=== PATIENT | male | born 1985 | race Caucasian/White ===

== ENCOUNTER 2017-05-28 12:44 | Emergency (ER) | payer BC ==
[2017-05-28] MEDS ORDERED: Acetaminophen TAB* 325 MG PO ONE (14:14)
[2017-05-28] MEDS ORDERED: Ketorolac INJ* 60 MG/2 ML VIAL IM ONE (15:10)
--- NOTE | 2017-05-28 15:16 | UC ---
HPI Febrile Illness - HPI Summary HPI Summary: 31 male presents with complaints of body aches, fever/chills, lower back pain, diarrhea and generalized fatigue/malaise that has been on going since Saturday night 05/26/17. 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 Believes he may have lyme disease. Denies any bullseye rash. States he was also at the [employer] festival, sharing drinks and eating food which may have caused his symptoms. Patient also admits to a dazy headache intermittently. Has been eating and drinking plenty of fluids. Appears to be very anxious. 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 Taking Zoloft. Has been taking 600mg ibuprofen with last dose yesterday without relief. Given Tylenol at for body aches at 2:00pm. Denies rash, numbness, tingling, weakness and neck stiffness. - History of Current Complaint Hx Obtained From: Patient Onset/Duration: Started Days Ago - 2-3, Still Present Timing: Constant Temperature: 100.3 F Initial Severity: Moderate Current Severity: Moderate Pain Intensity: 10 Pain Scale Used: 0-10 Numeric Aggravating Factors: Nothing Alleviating Factors: Nothing Associated Signs and Symptoms: Arthralgia, Diarrhea, Headache, Nausea <Paola Hayes - Last Filed: 05/28/17 16:16> <Jennifer Mcgraw - Last Filed: 05/29/17 06:53> - History of Current Complaint Chief Complaint: UCGeneralIllness Time Seen by Provider: 05/28/17 14:50 - Allergy/Home Medications Allergies/Adverse Reactions: Allergies Allergy/AdvReac Type Severity Reaction Status Date / Time No Known Allergies Allergy Verified 05/28/17 13:06 Home Medications: Home Medications Sertraline* [Zoloft*] 50 mg PO DAILY 05/28/17 [History Confirmed 05/28/17] PMH/Surg Hx/FS Hx/Imm Hx Endocrine/Hematology History: Denies: Hx Diabetes, Hx Thyroid Disease Cardiovascular History: Denies: Hx Hypertension Respiratory History: Denies: Hx Asthma, Hx Chronic Obstructive Pulmonary Disease (COPD) GI History: Denies: Hx Ulcer - Surgical History Surgery Procedure, Year, and Place: partial splenectomy, both feet Infectious Disease History: No Infectious Disease History: Denies: Hx Clostridium Difficile, Hx Hepatitis, Hx Human Immunodeficiency Virus (HIV), Hx Shingles, Hx Tuberculosis, Hx Known/Suspected VRE, Hx Known/ Suspected VRSA, History Other Infectious Disease, Traveled Outside the [place] in Last 30 Days - Family History Known Family History: Positive: None - Social History Alcohol Use: Weekly Substance Use Type: Reports: None Smoking Status (MU): Former Smoker <Paola Hayes - Last Filed: 05/28/17 16:16> Review of Systems Constitutional: Fever, Chills, Fatigue Skin: Negative Eyes: Negative ENT: Negative Respiratory: Negative Cardiovascular: Negative Gastrointestinal: Diarrhea, Nausea Genitourinary: Negative Motor: Negative Neurovascular: Negative Musculoskeletal: Arthralgia, Myalgia Neurological: Headache All Other Systems Reviewed And Are Negative: Yes <Brandyn Hayesyssa - Last Filed: 05/28/17 16:16> Physical Exam Triage Information Reviewed: Yes Appearance: Well-Appearing, No Pain Distress, Well-Nourished Vital Signs: Initial Vital Signs Temp 98.4 F 05/28/17 12:59 Pulse 101 05/28/17 12:59 Resp 18 05/28/17 12:59 BP 115/76 05/28/17 12:59 Pulse Ox 100 05/28/17 12:59 tachycardia, temp 100.3 with acetaminophen 2 hours ago Vital Signs Reviewed: Yes Eyes: Positive: Conjunctiva Clear ENT: Positive: Hearing grossly normal Neck: Positive: Supple, Nontender, No Lymphadenopathy Respiratory: Positive: Chest non-tender, Lungs clear, Normal breath sounds, No respiratory distress, No accessory muscle use Cardiovascular: Positive: RRR, No Murmur, Pulses Normal, Brisk Capillary Refill Abdomen Description: Positive: Nontender - "uncomfortable", No Organomegaly, Soft. Negative: Bruit, CVA Tenderness (R), CVA Tenderness (L), Distended, Guarding, McBurney's Point Tenderness, Peritoneal Signs, Pulsatile Mass Bowel Sounds: Positive: Present Musculoskeletal: Positive: Strength Intact, ROM Intact - pain with movement of knees, back, No Edema Neurological Exam: Normal - neuro exam Neurological: Positive: Alert, Muscle Tone Normal - sensation intact Psychological: Positive: Age Appropriate Behavior Skin Exam: Normal - without rash, erythema, no erythema migrans. normal skin exam. <Paola Hayes - Last Filed: 05/28/17 16:16> Vital Signs: Initial Vital Signs Temp 98.4 F 05/28/17 12:59 Pulse 101 05/28/17 12:59 Resp 18 05/28/17 12:59 BP 115/76 05/28/17 12:59 Pulse Ox 100 05/28/17 12:59 <Jennifer Mcgraw - Last Filed: 05/29/17 06:53> Course/Dx - Course Course Of Treatment: given pain management, tylenol at 2pm without relief. given toradol at 3:30pm with some relief. CBC CMP and lyme titer drawn, flu obtained and negative. Awaiting results from blood work. Will treat with pain managment and doxycyline for the next 7 days until test results obtained. Told to make an appointment with PCP for follow up and if symptoms persist worsen. Differential diagnoses: viral syndrome, gastroenteritis, influenza, lyme disease. Patient was educated on all and current treatment plan. Will continue doxy if positive titer. Very vague/diffuse symptoms/complaints. Aware of worsening signs and symtpoms and go straight to ER if persist, worsen or new symptosm develop as I am limited with lab studies at . Did advise going to ER for quicker results and further work up is recommended. - Febrile Illness Differential Diagnoses: GI Disease, Other: - lyme disease, tick bite, gastroenteritis, influenza, viral syndrome - Diagnoses Clinic Provider Diagnoses: arthralgias, low grade fever, possible lyme disease <Paola Hayes - Last Filed: 05/28/17 16:16> Discharge <Paola Hayes - Last Filed: 05/28/17 16:16> <Jennifer Mcgraw - Last Filed: 05/29/17 06:53> - Discharge Plan Condition: Stable Disposition: HOME Prescriptions: DOXYcycline CAP(*) [DOXYcycline 100MG CAP(*)] 100 mg PO BID #14 cap HYDROcodone/ACETAMIN 5-325 MG* [[place] 5-325 TAB*] 1 tab PO Q6H PRN #3 tab MDD 3 PRN Reason: Pain Patient Education Materials: Lyme Disease (ED), Viral Syndrome (ED), Doxycycline (By mouth) Referrals: No Primary Care Phys,NOPCP [Primary Care Provider] - [facility] [place] [facility]IAN REFERRAL [Outside] Additional Instructions: Drink plenty of fluids and get plenty of rest. Take prescribed doxy as directed for the next 7 days and be sure to protect yourself from the sun. If symptoms worsen, persist or new symptoms develop please go straight to ER. Follow up with PCP. You will hear about test results as received. Attestation Statement User Type: Provider - I was available for consult. This patient was seen by the [facility]. The patient was not presented to, seen by, or examined by me. -[place] <Jennifer Mcgraw - Last Filed: 05/29/17 06:53> Addendum entered and electronically signed by Paola Hayes PA 05/28/17 16: 04: ED Addendum Addendum: At discharge vitals patient's temperature had increased to 105F. Was given tylenol at 2pm and toradol ~ 10minutes before discharge vitals. Was encouraged and highly recommended to go to the ER and was aware of the risks of leaving AMA. Patient stated he was not going to the ER via ambulance and he would have someone drive him. Therefore no fluids or IV was initiated as patient left AMA to be brought by private car. Addendum entered and electronically signed by Paola Hayes PA 05/28/17 16: 16: ED Addendum Addendum: spoke with Lakesha Nloasco PA-C at [facility] [place] at 4:15pm about patient
[2017-05-28 16:09] VITALS: BP 128/72
== END 2017-05-28 16:19 | disposition home or self-care (01) ==
LOC: UCEAST 12:44
DX: M25.50 Pain in unspecified joint (principal); R50.9 Fever, unspecified; Z87.891 Personal history of nicotine dependence
CPT/HCPCS: 87502; 99202; A9270-GY; G0463; J1885

== ENCOUNTER 2017-05-28 16:38 | Emergency (ER) | payer BC ==
[2017-05-28] MEDS ORDERED: NS 0.9% 1000 ML* 2,000 ML IV ONE (17:59)
[2017-05-28] MEDS ORDERED: cefTRIAXone(*) 1 GM in NS 0.9% 50 ML* 50 ML IVPB ONE (18:14)
[2017-05-28 18:56] LABS: Hematocrit 43 % (42-52); Hemoglobin 14.7 g/dl (14.0-18.0); Mean Corpuscular HGB Conc 34 g/dl (31-36); Mean Corpuscular Hemoglobin 31 pg (27-31); Mean Corpuscular Volume 92 fL (80-94); Mean Platelet Volume 8 um3 (7.4-10.4); Red Blood Count 4.72 10^6/ul (4.0-5.4); Red Cell Distribution Width 13 % (10.5-15); White Blood Count 11.5 10^3/ul (3.5-10.8)
[2017-05-28 19:12] LABS: Albumin 3.9 g/dL (3.2-5.2); BUN/Creatinine Ratio 10.7 (8-20); C Reactive Protein 274.59 mg/L (< 5.00); Calcium 9.1 mg/dL (8.6-10.3); EGFR African American 88.5 (>60); EGFR Non-African American 68.8 (>60); Globulin 3.3 g/dL (2-4); Potassium 2.9 mmol/L (3.5-5.0); Total Bilirubin 0.5 mg/dL (0.2-1.0); Total Protein 7.2 g/dL (6.4-8.9)
[2017-05-28] MEDS ORDERED: Acetaminophen TAB* 325 MG PO ONE (19:50)
[2017-05-28] MEDS ORDERED: Ibuprofen TAB* 600 MG PO ONE ×2 (21:43→23:29)
[2017-05-28 21:58] LABS: Urine Bacteria Absent (Absent); Urine Bilirubin Negative (Negative); Urine Glucose Negative (Negative); Urine Nitrite Negative (Negative)
[2017-05-28 23:17] VITALS: BP 112/82
[2017-05-28] MEDS ORDERED: HYDROcodone/ACETAMIN 5-325 MG* 1 TAB PO ONE (23:28)
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
[2017-05-30 22:39] LABS: Lyme Disease IgG Ab WB Negative (Negative)
== END 2017-05-28 23:53 | disposition home or self-care (01) ==
LOC: ED 16:38
DX: R50.9 Fever, unspecified (principal); R19.7 Diarrhea, unspecified; Z87.891 Personal history of nicotine dependence
CPT/HCPCS: 36415; 80053; 81003; 81015; 82270; 83605; 83630; 85025; 86140; 86617; 86618; 87040; 87045; 87046; 87077; 87328; 87329; 87493; 87899; 96360; 99285; A9270-GY; J0696

== ENCOUNTER 2018-02-09 13:03 | Emergency (ER) | payer BC ==
[2018-02-09 13:31] VITALS: BP 113/57
--- NOTE | 2018-02-09 13:47 | UC ---
Respiratory Complaint HPI - HPI Summary HPI Summary: 32 y/o male presents to the urgent care c/o sinus congestion w/ sinus pain , BELLO and green PND for the past 3 months. Pt reports he went to an urgent care about 1 months ago and Rx Doxycycline PO . He finished the full course of ABx and symptoms improved only for a few day, but now returned. For the past week symptoms have worsen. BELLO is 4/10 w/ B/L ear pressure. He took Sudafed which helped for only a few hours. He feels also fatigue at times. He works outdoor and he has Hx of seasonal allergies. - History of Current Complaint Chief Complaint: UCRespiratory Stated Complaint: CONGESTED Time Seen by Provider: 02/09/18 13:44 Hx Obtained From: Patient Onset/Duration: Gradual Onset, Lasting Weeks - 3 months, Still Present, Worse Since - last week Timing: Constant Severity Initially: Mild Severity Currently: Moderate Pain Intensity: 4 - sinus pain Pain Scale Used: 0-10 Numeric Character: Cough: Productive, Sputum Description: - yellowish Aggravating Factors: Recumbent Position Associated Signs And Symptoms: Positive: Nasal Congestion, Sinus Discomfort. Negative: Fever, Chills, Wheezing, URI Related History: Seasonal Allergies - Risk Factors Pulmonary Embolism Risk Factors: Negative Cardiac Risk Factors: Negative Pseudomonas Risk Factors: Negative Tuberculosis Risk Factors: Negative - Allergies/Home Medications Allergies/Adverse Reactions: Allergies Allergy/AdvReac Type Severity Reaction Status Date / Time No Known Allergies Allergy Verified 05/28/17 13:06 Home Medications: Home Medications Vortioxetine Hydrobromide [Trintellix] 10 mg PO 02/09/18 [History] PMH/Surg Hx/FS Hx/Imm Hx Previously Healthy: Yes Respiratory History: Asthma - as a child Other Respiratory History: seasonal allergies - Surgical History Surgical History: Yes Surgery Procedure, Year, and Place: partial splenectomy, both feet - Family History Known Family History: Positive: None - Pt denies FMHX Negative: Cardiac Disease, Hypertension, Diabetes - Social History Occupation: Employed Full-time Lives: With Family Alcohol Use: Occasionally Substance Use Type: None Smoking Status (MU): Former Smoker Review of Systems Constitutional: Negative Skin: Negative Eyes: Negative ENT: Ear Ache - B/L ear pressure, Nasal Discharge, Sinus Congestion, Sinus Pain/ Tenderness Respiratory: Cough - productive Cardiovascular: Negative Gastrointestinal: Negative Genitourinary: Negative Motor: Negative Neurovascular: Negative Musculoskeletal: Negative Neurological: Headache Psychological: Negative Is Patient Immunocompromised?: No All Other Systems Reviewed And Are Negative: Yes Physical Exam - Summary Physical Exam Summary: Vitals: reviewed General: Well developed, well-nourished male patient with NAD. Head and face: Normocephalic and atraumatic, Positive tenderness over the frontal and maxillary sinuses.. Eyes: PERRLA, EOMI x 2. Normal conjunctiva. No eye discharge. ENT: Ears and TM with normal limits. Nose: with yellowish discharge and erythematous mucosa. Pharynx with erythema, no exudate. +PND yellowish Neck: Supple, no JVD, no carotid bruits and no lymphadenopathy. Lungs: clear, no rales, no rhonchi, no wheezes. CVS: RRR, S1 and S2 present no murmurs or gallops appreciated. Abdomen: soft nontender with positive bowel sounds. Extremities: no edema noted. Neuro: WNL. Skin: warm and dry Triage Information Reviewed: Yes Vital Signs: Initial Vital Signs Temp 98.6 F 02/09/18 13:28 Pulse 70 02/09/18 13:28 Resp 18 02/09/18 13:28 BP 113/57 02/09/18 13:28 Pulse Ox 99 02/09/18 13:28 UC Diagnostic Evaluation - Laboratory O2 Sat by Pulse Oximetry: 99 Respiratory Course/Dx - Course Course Of Treatment: 32 y/o male presents to the urgent care c/o sinus congestion w/ sinus pain , BELLO and green PND for the past 3 months. Pt reports he went to an urgent care about 1 months ago and Rx Doxycycline PO . He finished the full course of ABx and symptoms improved only for a few day, but now returned. For the past week symptoms have worsen. BELLO is 4/10 w/ B/L ear pressure. He took Sudafed which helped for only a few hours. He feels also fatigue at times. 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 Pt w/ acute bacterial sinusitis on examination. Pt with 3 months of symptoms getting worse. Pt Rx Augmentin PO and flonase nasal spray. Discharge instructions explained to Pt. Advised to f/u w/ his PCP of ENT Dr Caro for further evaluation and Tx of his recurrent sinusitis. Pt understood and agreed with plan of care. - Differential Dx/Diagnosis Differential Diagnosis/HQI/PQRI: Bronchitis, Influenza, Sinusitis, Other - URI Provider Diagnoses: 1- Acute bacterial sinusitis Discharge - Sign-Out/Discharge Documenting (check all that apply): Discharge - Discharge Plan Condition: Stable Disposition: HOME Prescriptions: Amoxicillin/Clavulanate TAB* [Augmentin TAB 875*] 875 mg PO BID #20 tab Fluticasone NASAL SPRAY 50MCG* [Flonase NASAL SPRAY 50MCG*] 2 spray BOTH NARES DAILY #1 btl Patient Education Materials: Sinusitis (ED) Referrals: [facility] [place] [facility] REFERRAL [Outside] - 1 Week London Caro MD [Medical Doctor] - If Needed Additional Instructions: 1- Please increase fluid intake and rest. take full course of antibiotic to avoid resistance 2-Use Flonase as directed to help drain fluid. Also buy saline drops to clear sinuses. Use a humidifier or vaporizer at night time. 3-Continue taking Sudafed PO to alleviates sinus congestion 4- Please f/u w/ your PCP or ENT DR Caro if symptoms do not improvement for further management and treatment - Billing Disposition and Condition Condition: STABLE Disposition: HOME
== END 2018-02-09 14:29 | disposition home or self-care (01) ==
LOC: UCEAST 13:03
DX: J01.90 Acute sinusitis, unspecified (principal); Z87.891 Personal history of nicotine dependence
CPT/HCPCS: 99212; G0463

== ENCOUNTER 2018-05-20 15:21 | Emergency (ER) | payer BC ==
[2018-05-20 16:54] VITALS: BP 129/74
--- NOTE | 2018-05-20 17:23 | UC ---
Skin Complaint HPI - HPI Summary HPI Summary: 32 y/o male presents to the urgent care c/o rash around navel for the past 9 days. Pt reports he had 2 tick bites inside his navel about 2 weeks ago. He removed engorged ticks. He went to [facility] urgent care about 1 week ago and Dx w / cellulitis and Rx Bactrim PO. He has been taking ABx w/o any improvement and rash is increasing in size. Pt feels fatigue, but denies pain, fever, joint pain , BELLO, chest pain, abdominal pain, N/V/D. Pt is always working outdoors. - History of Current Complaint Chief Complaint: [facility] Time Seen by Provider: 05/20/18 17:15 Stated Complaint: TICK BITES,RASH Hx Obtained From: Patient Onset/Duration: Gradual Onset, Lasting Days - 9 days, Still Present, Worse Since - yesterday Skin Exposure Onset/Duration: Days Ago - 9 Timing: Constant Onset Severity: Mild Current Severity: Moderate Pain Intensity: 0 Pain Scale Used: 0-10 Numeric Location: Discrete - aroun navel s/p tick bite Character: Redness Aggravating Factor(s): Nothing Alleviating Factor(s): Nothing Associated Signs & Symptoms: Positive: Weakness, Rash. Negative: Fever, Chills , Drainage, Tenderness Related History: Possible Reaction to: Insect - Allergy/Home Medications Allergies/Adverse Reactions: Allergies Allergy/AdvReac Type Severity Reaction Status Date / Time No Known Allergies Allergy Verified 05/20/18 16:54 Home Medications: Home Medications Vortioxetine Hydrobromide [Trintellix] 10 mg PO DAILY WITH MEAL 05/20/18 [ History Confirmed 05/20/18] Review of Systems Constitutional: Fatigue Skin: Rash - around navel Eyes: Negative ENT: Negative Respiratory: Negative Cardiovascular: Negative Gastrointestinal: Negative Genitourinary: Negative Motor: Negative Neurovascular: Negative Musculoskeletal: Negative Neurological: Negative Psychological: Negative Is Patient Immunocompromised?: No All Other Systems Reviewed And Are Negative: Yes PMH/Surg Hx/FS Hx/Imm Hx Previously Healthy: Yes Respiratory History: Asthma - Surgical History Surgical History: Yes Surgery Procedure, Year, and Place: partial splenectomy. left foot f - Family History Known Family History: Positive: Cardiac Disease Negative: Hypertension, Diabetes - Social History Occupation: Employed Full-time Lives: With Family Alcohol Use: Weekly Substance Use Type: None Smoking Status (MU): Former Smoker When Did the Patient Quit Smoking/Using Tobacco: one year Physical Exam - Summary Physical Exam Summary: Vital Signs Reviewed: Yes General: well developed, well nourished male sitting in the examining table w/o any apparent distress. Eyes: Positive: Conjunctiva Clear - PERRLA, EOMI ENT: Positive: Normal ENT inspection, Hearing grossly normal, Pharynx normal, TMs normal Neck: Positive: Supple, Nontender, No Lymphadenopathy Respiratory: Positive: Chest nontender, Lungs clear, Normal breath sounds Cardiovascular: Positive: RRR, No Murmur, Pulses Normal Abdomen Description: Positive: Nontender, No Organomegaly, Soft. Negative: CVA Tenderness (R), CVA Tenderness (L) Bowel Sounds: Positive: Present Musculoskeletal: Positive: Strength Intact, ROM Intact, No Edema Neurological Exam: Normal Psychological Exam: Normal Skin: Positive: rashes.positive erythematous patch w/ a central clearance and classical bull's eye lesion, about 5cmx 6.0cm in size around umbilicus. non tender to palpation. no swelling or drainage observed. Triage Information Reviewed: Yes Vital Signs: Initial Vital Signs Temp 98.3 F 05/20/18 16:49 Pulse 65 05/20/18 16:49 Resp 18 05/20/18 16:49 BP 129/74 05/20/18 16:49 Pulse Ox 100 05/20/18 16:49 Course/Dx - Course Course Of Treatment: 32 y/o male presents to the urgent care c/o rash around navel for the past 9 days. Pt reports he had 2 tick bites inside his navel about 2 weeks ago. He removed engorged ticks. He went to [facility] urgent care about 1 week ago and Dx w/ cellulitis and Rx Bactrim PO. He has been taking ABx w/o any improvement and rash is increasing in size. Pt feels fatigue, but denies pain, fever, joint pain, BELLO, chest pain, abdominal pain, N/V/D. Pt is always working outdoors.Hx obtained. Pt w/ positive erythematous patch w/ a central clearance and classical bull's eye lesion, about 5cmx 6.0cm in size around umbilicus on examination.Pt most likely with Lyme Disease on examination. Lyme serology ordered. Pt Rx Doxycycline PO . Advised that there is to possibility the serology returns negative the first 2 weeks of exposure. However strongly advised to f/u with Dr Hirsch or PCP for further management. Pt understood and agreed with plan of care. - Differential Diagnoses - Skin Complaint Differential Diagnoses: Abscess, Cellulitis, Contact Dermatitis, Local Allergic Reaction, Tick Born Illness, Urticaria - Diagnoses Provider Diagnoses: 1- Erythema migrans rash. 2- Lyme disease Discharge - Sign-Out/Discharge Documenting (check all that apply): Patient Departure - D/c home - Discharge Plan Condition: Stable Disposition: HOME Prescriptions: DOXYcycline CAP(*) [DOXYcycline 100MG CAP(*)] 100 mg PO BID #42 cap Patient Education Materials: Lyme Disease (ED) Referrals: [facility] [place]] Rachelle SUTTON,Jabier Lim [Medical Doctor] - If Needed Additional Instructions: 1- Please take full course of antibiotic. Lyme serology was sent to lab to r/o Lyme disease . You will be notified of the result 2- Please take Probiotics to protect your GI system. 3-Please f/u w/ Dr Hirsch for further evaluation and treatment if Lyme serology returns positive - Billing Disposition and Condition Condition: STABLE Disposition: Home Attestation Statement User Type: Provider - I was available for consult. This patient was seen by the ALEXIA. The patient was not presented to, seen by, or examined by me. -[place]if[place]
--- NOTE | 2018-05-22 17:34 | UC ---
- Progress Note Progress Note: + lyme serology awaiting western blot results pt on Doxy 05/22/2018 ljj Discharge - Sign-Out/Discharge Documenting (check all that apply): Post-Discharge Follow Up - Discharge Plan Condition: Stable Disposition: HOME Prescriptions: DOXYcycline CAP(*) [DOXYcycline 100MG CAP(*)] 100 mg PO BID #42 cap Patient Education Materials: Lyme Disease (ED) [place]: [facility] [place]] Rachelle SUTTON,Jabier Lim [Medical Doctor] - If Needed Additional Instructions: 1- Please take full course of antibiotic. Lyme serology was sent to lab to r/o Lyme disease . You will be notified of the result 2- Please take Probiotics to protect your GI system. 3-Please f/u w/ Dr Hirsch for further evaluation and treatment if Lyme serology returns positive - Billing Disposition and Condition Condition: STABLE Disposition: Home
== END 2018-05-20 17:58 | disposition home or self-care (01) ==
LOC: UCEAST 15:21
DX: A26.0 Cutaneous erysipeloid (principal); A69.20 Lyme disease, unspecified; R53.83 Other fatigue; J45.909 Unspecified asthma, uncomplicated; Z82.49 Family history of ischemic heart disease and other diseases of the circulatory system; Z87.891 Personal history of nicotine dependence
CPT/HCPCS: 86617; 86618; 99212; G0463